=== PATIENT | female | born 1940 | race Caucasian/White ===

== ENCOUNTER → 2017-07-24 | Outpatient (CLI) | payer MEDICARE ==
[2017-07-24 21:57] LABS: Appearance,CSF Clear
== END | disposition home or self-care (01) ==
LOC: LABWHC1 08:00
PROVIDERS: ATTEND Nurse Practitioner Acute Care
DX: G35 Multiple sclerosis (principal)
CPT/HCPCS: 82040; 82042; 82784; 83873; 83916; 84157; 87476; 89050

== ENCOUNTER → 2017-08-07 | Outpatient (CLI) | payer MEDICARE ==
--- NOTE | 2017-08-18 10:00 | MR ---
EXAMINATION TYPE: MR cspine/tspine wo con DATE OF EXAM: 08/07/2017 COMPARISON: NONE HISTORY: MS TECHNIQUE: T1 sagittal and coronal, T2 sagittal, and gradient echo axial views of the cervical spine are submitted. FINDINGS: The cranial cervical junction is preserved. There is no abnormal signal seen within the sp inal cord or paraspinal soft tissues. There is a complex mass in the left thyroid region measuring ap proximately 1.6 cm. At C2-3 there is degenerative disc disease but no canal stenosis. Mild central disc bulging. Neural f oramina patent. At C3-4 there is degenerative disc disease but no canal stenosis. Facet arthropathy noted. No foramin al encroachment or canal stenosis. At C4-5 there is a 2 mm anterolisthesis of C4 on C5 with broad-based central disc bulging or small pr otrusion. Moderate effacement of thecal sac. Facet arthropathy and uncovertebral joint hypertrophy re sult in mild left foraminal encroachment and borderline canal stenosis. At C5-6 there is severe degenerative disc disease with 2 mm anterolisthesis. There is broad-based dis c bulging and mild effacement of the thecal sac. Borderline to mild canal stenosis. Uncovertebral mesha nt hypertrophy and facet arthropathy contribute to moderate left foraminal encroachment. At C6-7 there is severe degenerative disc disease. Bilateral uncovertebral joint hypertrophy but no c anal stenosis or foraminal encroachment. At C7-T1 there is severe degenerative disc disease but no canal stenosis. No foraminal encroachment. IMPRESSION: 1. Multilevel severe degenerative disc disease and anterolisthesis with multilevel foraminal encroac hment as discussed above. Borderline to mild central stenosis C4-5 and C5-C6. 2. Complex mass left neck measuring 1.6 cm ultrasound suggested. 3. 2 mm anterolisthesis C4 on 5 and C5 and C6 as discussed above. 4. Limited assessment spinal cord due to severe motion artifact. No obvious areas of abnormal signal. EXAMINATION TYPE: MR cspine/tspine wo con DATE OF EXAM: 08/07/2017 COMPARISON: NONE HISTORY: MS Standard multiplanar, multisequence MRI departmental protocol Multiplanar, multisequence images of the thoracic spine were acquired. Diffusion weighted imaging was performed. FINDINGS: Benign-appearing cystic lesions kidneys however, there is a solid-appearing lesion of the l ateral margin of the left kidney. CT scan is recommended. Malignancy or neoplasm in the differential diagnosis. Additional indeterminate renal lesions identified. Hiatal hernia noted. There is loss of disc signal and space at all levels. Alignment is anatomic. There are no compression deformities. No abnormal signal within the spinal cord. No evidence of disc herniation or canal stenosis at any of the visualized levels. Complex mass within the soft tissues of the left neck redemonstrated. IMPRESSION: 1. Multilevel mild degenerative disc disease with no evidence of disc herniation, canal stenosis or f oraminal encroachment. 2. Solid mass left kidney CT of the abdomen recommended to assess for neoplasm. Measures 1.5 cm. 3. No abnormal signal the visualized spinal cord.
--- NOTE | 2017-08-18 11:11 | MR ---
EXAMINATION TYPE: MR brain wo/w con DATE OF EXAM: 08/07/2017 COMPARISON: Prior report of CT scan from outside institution dated 02/05/2017, no previous brain MRI i s available HISTORY: MS TECHNIQUE: Multiplanar, multisequence images of the brain and brainstem is performed without and with IV contras t, utilizing 4.5 mL intravenous Gadavist . FINDINGS: Diffusion weighted images demonstrate no evidence of a recent infarct or other diffusion ab normality. There is no extra-axial fluid collection or significant white matter signal abnormality. The ventricular system and cisternal spaces are normal in size and appearance. The brain volume is age appropriate. Question linear cortical increased signal seen on inversion recovery only, axial shekhar ge 24 at the left frontal lobe. Midline structures demonstrate normal morphology. The craniocervical junction appears within normal limits. Post contrast images demonstrate no abnormal enhancement. The dural venous sinuses appear pa tent. The visualized sinuses are clear and the globes are intact. IMPRESSION: Focal linear cortical increased signal on inversion recovery in the left frontal lobe of questionable clinical significance, follow-up could be performed.
== END | disposition home or self-care (01) ==
LOC: RADMRIMAIN 10:56
PROVIDERS: ATTEND Nurse Practitioner Acute Care
DX: M48.02 Spinal stenosis, cervical region (principal); M50.33 Other cervical disc degeneration, cervicothoracic region; M43.13 Spondylolisthesis, cervicothoracic region; R41.844 Frontal lobe and executive function deficit; R22.1 Localized swelling, mass and lump, neck; G35 Multiple sclerosis
CPT/HCPCS: 70553; 72141; 72146; A9581

== ENCOUNTER → 2017-08-14 | Outpatient (CLI) | payer MEDICARE ==
--- NOTE | 2017-08-14 16:31 | NM ---
EXAMINATION TYPE: NM DatScan Brain SPECT DATE OF EXAM: 08/14/2017 COMPARISON: Correlation MRI of the brain 08/07/2017 HISTORY: 77-year-old female with tremors TECHNIQUE: 10 drops of Lugol's solution was administered 1 hour prior to injection as a thyroid bloc allyssa agent. After the administration of 5.0 mCi I-123 Ioflupane DaTscan. Images obtained [address] injection. SPECT images of the brain were acquired with axial and coronal reconstructions. FINDINGS: The axial SPECT images demonstrate normal background activity. Accounting for head tilt, there is sy mmetrical comma-shaped appearance of the corpus striata. IMPRESSION: The normal appearance is against a diagnosis of Parkinson's disease/Parkinsonian syndrome. It can be seen in individuals with essential tremor and drug induced Parkinsonism. The possibility of vascular pseudo-parkinsonism is considered unlikely given the lack of significant chronic ischemic changes on the patient's brain MRI.
== END | disposition home or self-care (01) ==
LOC: RADNMMAIN 09:56
PROVIDERS: ATTEND Psychiatry & Neurology Neurology
DX: G25.0 Essential tremor (principal)
CPT/HCPCS: 78607; A9584

== ENCOUNTER → 2017-12-05 | Outpatient (CLI) | payer MEDICARE ==
[2017-12-05 15:53] LABS: Blood Urea Nitrogen 28 mg/dL (7-17)
--- NOTE | 2017-12-06 21:33 | CT ---
EXAMINATION TYPE: CT soft tissue neck w con DATE OF EXAM: 12/05/2017 HISTORY: Physician felt swelling to right side of neck. Tenderness per patient. COMPARISON: MRI cervical spine August 07, 2017 CT DLP: 338 mGycm. Automated Exposure Control for Dose Reduction was Utilized. TECHNIQUE: CT scan of the neck is performed with IV Contrast, patient injected with 100 mL of Omnipa que 300, axial images are obtained, coronal and sagittal reformatted images are reviewed. FINDINGS: Airway: There is asymmetric heterogeneous enlarged left thyroid lobe with dominant 1.8 cm lateral lef t thyroid nodule lateral aspect correlates with MRI axial image 7 that likely warrants follow-up. Fol low-up thyroid ultrasound with sampling likely warranted. There is background mild underlying emphyse matous change with right lateral in the anterior upper lobe parenchymal scarring noted. Right-sided v olume loss with mediastinal shift is seen. Parotid/submandibular glands: No gross abnormality seen. Carotid/Vascular Structures: There is redemonstration of mild to moderate plaque at bilateral carotid bulbs without. Osseous Structures: Osseous structures are demineralized. There is exaggerated cervical curvature red emonstrated. There is grade 1 anterolisthesis of C4 on C5 and C5 on C6 identified. There are multilev el bilateral uncovertebral facet degenerative changes. There is moderate severe multilevel spurring a nd disc space narrowing C5-C6, C6-C7, and C7-T1 levels. Other: Right axillary surgical clips are noted. There is no definitive suspicious right-sided neck ma ss or adenopathy. IMPRESSION: No significant abnormality is seen to account for patient's right-sided neck symptoms. A dvise follow-up thyroid ultrasound and probable left thyroid nodule sampling if has not been performe d. Correlate clinically.
== END | disposition home or self-care (01) ==
LOC: RADCTMAIN 15:05
PROVIDERS: ATTEND Psychiatry & Neurology Neurology
DX: R22.0 Localized swelling, mass and lump, head (principal)
CPT/HCPCS: 82565; 84520; 70491; 36415; Q9967